=== PATIENT | male | born 1995 | race Caucasian/White ===

== ENCOUNTER → 2022-12-19 10:08 | Outpatient (CLI) | payer OTHER, SELFPAY ==
--- NOTE | ~2022-12-19 | MR_ITS ---
EXAMINATION: MR knee RT wo con DATE: 12/19/2022 10:44 INDICATION: Acute onset right knee pain TECHNIQUE: Magnetic resonance imaging (MRI) of the right knee was performed without intravenous contr ast. Sequences included coronal PD-weighted FSE, coronal PD-weighted FS FSE, sagittal T2-weighted FS E, sagittal PD-weighted FS FSE and axial PD weighted fat saturated FSE. COMPARISON: None. FINDINGS: Medial compartment: Complex tear of the body and posterior horn of the medial meniscus which includes a displaced menisca l flap arising from the inferior aspect of the inner half of the posterior horn which is displaced me dially into the intercondylar notch anterior to the vertical component of the posterior cruciate liga ment. There is an additional small meniscal flap extending inferiorly from the posterior meniscal bod y into the inferior gutter along side the posterior medial rim of the medial tibial plateau. Articula r cartilage is normal. Lateral compartment: Lateral meniscus is normal. Articular cartilage is normal. Patellofemoral compartment: Articular cartilage is normal. Ligaments and tendons: Anterior and posterior cruciate ligaments are normal. The medial collateral ligament and fibular betsey ateral ligament complex are normal. The extensor mechanism is normal. The visualized medial and later al hamstring tendons as well as the iliotibial band are normal. Fluid: Small right knee joint effusion. No loose osteochondral bodies identified. Osseous/other: Bone alignment is normal. Normal marrow signal with no fracture or pathologic marrow replacing proces s. There is scarring at the medial side of Hoffa's fat pad and location suggesting likely prior arthr oscopy port tracks. IMPRESSION: 1. Complex medial meniscal tear with displaced meniscal flaps. Reviewed, dictated and finalized at location A.
== END ==
PROVIDERS: PCP Family Medicine; Visit Provider Orthopaedic Surgery
DX: S83.231A Complex tear of medial meniscus, current injury, right knee, initial encounter (principal); X58.XXXA Exposure to other specified factors, initial encounter
CPT/HCPCS: 73721